=== PATIENT | female | born 2000 | race Caucasian/White ===

== ENCOUNTER 2024-02-24 00:16 | Emergency (ER) | payer OTHER ==
[2024-02-24 00:29] VITALS: BP 124/68; PULSE 98; RESP 20; TEMP 98.6; BMI 19.6
[2024-02-24] MEDS ORDERED: AMOX TR/POT CLAV 875MG/125MG TABLETS (FP) ONE (01:15)
[2024-02-24] MEDS: AMOX TR/POT CLAV 875MG/125MG TABLETS (FP) PO ONE (01:16)
[2024-02-24] MEDS ORDERED: DIPHTH,PERTUSS(ACELL),TET 0.5 ML DISP.SYRIN IM ONE (01:19)
[2024-02-24] MEDS: DIPHTH,PERTUSS(ACELL),TET 0.5 ML DISP.SYRIN IM ONE (01:31)
== END 2024-02-24 01:31 | disposition home or self-care (01) ==
LOC: JER 00:16
PROC: 3E0234Z Introduction of Serum, Toxoid and Vaccine into Muscle, Percutaneous Approach (ICD-10-PCS; principal; 2024-02-24)
DX: S01.551A Open bite of lip, initial encounter (principal); W54.0XXA Bitten by dog, initial encounter; Z23 Encounter for immunization
CPT/HCPCS: 90471; 90715; 99284-25